=== PATIENT | female | born 1965 | race Native Hawaiian/Other Pacific Islander ===

== ENCOUNTER 2017-09-02 16:08 | Outpatient (CLI) | payer BC ==
--- NOTE | 2017-09-03 11:53 | Mammography Report ---
BILATERAL DIGITAL SCREENING MAMMOGRAM with CAD: 09/02/17 16:08:00 CLINICAL: Routine screening.History of bilateral reduction mammoplasty. COMPARISON:12/30/15 FINDINGS: The breasts are almost entirely fatty.Stable benign scar in the left breast and minimal scar of the right breast. No mass, architectural distortion or suspicious calcifications. IMPRESSION: No mammographic evidence of malignancy. BI-RADS CATEGORY: 2 -- Benign RECOMMENDATION: Routine mammographic screening in one year. COMMENT: Patient follow-up letters are generated by our [employer] application.
== END 2017-09-02 16:09 | disposition home or self-care (01) ==
LOC: SPVWC 16:08
DX: Z12.31 Encounter for screening mammogram for malignant neoplasm of breast (principal); Z98.890 Other specified postprocedural states
CPT/HCPCS: 77067